=== PATIENT | male | born 1970 | race Hispanic/Latino ===

== ENCOUNTER 2019-11-25 23:46 | Emergency (ER) | payer SELFPAY ==
[2019-11-26] MEDS ORDERED: Ketorolac Tromethamine 30 MG/ML VIAL ONE (00:44)
== END 2019-11-26 00:56 | disposition short-term general hospital (02) ==
LOC: MADERS 23:46
DX: M79.661 Pain in right lower leg (principal); M79.671 Pain in right foot
CPT/HCPCS: 96372; 99284; J1885

== ENCOUNTER 2020-02-09 11:22 | Emergency (ER) | payer SELFPAY ==
[2020-02-09] MEDS ORDERED: HYDROcodone/Acetaminophen 5/325 mg Tablet ONE (11:57)
[2020-02-09] MEDS ORDERED: Diazepam 5 MG TAB ONE (11:57)
[2020-02-09] MEDS ORDERED: Dexamethasone 4 MG TAB ONE (11:58)
[2020-02-09] MEDS ORDERED: Ketorolac Tromethamine 60 MG/2 ML VIAL ONE (11:58)
== END 2020-02-09 12:06 | disposition home or self-care (01) ==
LOC: MADERS 11:22
DX: M54.42 Lumbago with sciatica, left side (principal)
CPT/HCPCS: 96372; 99283; J1885; J8540

== ENCOUNTER 2021-08-25 13:00 | Emergency (ER) | payer SELFPAY ==
[2021-08-25] MEDS ORDERED: Ondansetron ODT 4 MG TAB ONE (13:23)
== END 2021-08-25 14:17 | disposition home or self-care (01) ==
LOC: MADERS 13:00
DX: J06.9 Acute upper respiratory infection, unspecified (principal); R11.2 Nausea with vomiting, unspecified; Z20.822 Contact with and (suspected) exposure to COVID-19
CPT/HCPCS: 87804; 99283; Q0162

== ENCOUNTER 2023-12-03 22:44 | Emergency (ER) | payer SELFPAY ==
[2023-12-04] MEDS ORDERED: Ibuprofen 800 MG TAB ONE (00:16)
[2023-12-04] MEDS ORDERED: predniSONE 20 MG TAB ONE (00:16)
[2023-12-04] MEDS ORDERED: HYDROcodone/Acetaminophen 5/325 mg Tablet ONE (00:16)
== END 2023-12-04 00:27 | disposition home or self-care (01) ==
LOC: MADERS 22:44
DX: M25.571 Pain in right ankle and joints of right foot (principal)
CPT/HCPCS: 99283; J7512